=== PATIENT | female | born 1940 | race Caucasian/White ===

== ENCOUNTER 2017-08-18 09:51 | Emergency (ER) | payer SELFPAY ==
[~2017-08-18] VITALS: Ht 167.6 cm; Wt 74.0 kg
[2017-08-18] MEDS ORDERED: LEVE500T19 PO (10:06)
[2017-08-18 13:18] VITALS: BP 108/60
[2017-08-18] MEDS ORDERED: ETOMIDATE 2MG/ML 10ML VIAL IV ONE (13:45)
[2017-08-18] MEDS ORDERED: SUCCINYLCHOLINE CHLORIDE 200MG/10ML VIAL IV ONE (13:45)
== END 2017-08-18 13:27 | disposition home or self-care (01) ==
LOC: ER 10:08
DX: T17.200A Unspecified foreign body in pharynx causing asphyxiation, initial encounter (principal); R09.02 Hypoxemia; R23.0 Cyanosis; R56.9 Unspecified convulsions; F02.80 Dementia in other diseases classified elsewhere, unspecified severity, without behavioral disturbance, psychotic disturbance, mood disturbance, and anxiety; G30.9 Alzheimer's disease, unspecified; Z51.5 Encounter for palliative care
CPT/HCPCS: 99283; J0330; J3490